=== PATIENT | male | born 1965 | race Caucasian/White ===

== ENCOUNTER 2018-04-30 04:08 | Emergency (ER) | payer BC ==
[~2018-04-30] VITALS: Ht 167.6 cm; Wt 72.6 kg
--- NOTE | 2018-04-30 04:08 | NUR ---
[id number] S/P GLF WITH ETOH INTOX, NOW A/OX4, LAC TO FOREHEAD WITH DRESSING. PT IS ABLE TO MAKE NEEDS KNOWN. BREATHING PATTERN WNL AND ADEQUATE CHEST RISE/FALL. VSS NO ACUTE DISTRESS AT THIS TIME. WILL CONTINUE TO MONITOR FOR ANY CHANGES DURING THE SHIFT.
--- NOTE | 2018-04-30 04:10 | NUR ---
ER AT BEDSIDE
[2018-04-30] MEDS ORDERED: LIDOCAINE HCL/PF 1% 30 ML SDV ONE (06:05)
[2018-04-30] MEDS ORDERED: LIDOCAINE 1%-EPI 1:100,000 20 ML VIAL ONE (06:05)
[2018-04-30 06:25] VITALS: BP 129/91
== END 2018-04-30 06:25 | disposition home or self-care (01) ==
LOC: ER 04:09
DX: S01.81XA Laceration without foreign body of other part of head, initial encounter (principal); F10.129 Alcohol abuse with intoxication, unspecified; Z60.2 Problems related to living alone; W01.0XXA Fall on same level from slipping, tripping and stumbling without subsequent striking against object, initial encounter; Y93.89 Activity, other specified; Y92.89 Other specified places as the place of occurrence of the external cause; Y99.8 Other external cause status; Y90.9 Presence of alcohol in blood, level not specified
CPT/HCPCS: 12013; 70450; 99284; A4606; A6403 ×3; J3490 ×2; Z7610